=== PATIENT | female | born 1990 ===

== ENCOUNTER 2021-02-16 10:00 | Inpatient (IN) | payer OTHER ==
[~2021-02-16] VITALS: Ht 165.1 cm; Wt 97.3 kg
[2021-02-16 21:20] VITALS: BP 136/89; PULSE 87; TEMP 98.9
[2021-02-16 22:30] VITALS: BP 130/84; PULSE 75
[2021-02-16 22:47] LABS: BASO % 0.3 % (0.0-2.0); EOS # 0.1 (0.0-0.7); EOS % 1.1 % (0-4.0); GRAN # 7.5 (1.4-6.5); GRAN % 63.3 % (42.2-75.2); HEMATOCRIT 39.4 % (37.0-47.0); HEMOGLOBIN 12.5 g/dl (12.5-16.0); LYMPH % 25.6 % (20.0-51.0); MEAN CELL VOLUME 93 fl (80.0-100.0); MEAN CORPUSCULAR HEMOGLOBIN 29 pg (27.0-31.0); MEAN CORPUSCULAR HGB CONC 32 g/dl (33.0-37.0); MEAN PLATELET VOLUME 11.1 fl (7.4-10.4); MONO # 1.1 (0.1-0.6); MONO % 9.4 % (1.7-9.3); PLATELET COUNT 209 K/mm3 (130-400); RED BLOOD COUNT 4.26 M/mm3 (4.10-5.30); REDCELL DISTRIBUTION WIDTH-CV 14.8 % (11.5-14.5)
[2021-02-16 23:00] VITALS: BP 120/74; PULSE 81
[2021-02-16 23:15] VITALS: BP 125/77; PULSE 78
[2021-02-16 23:30] VITALS: BP 130/82; PULSE 85
[2021-02-17] VITALS (83 sets, daily range): BP systolic 103–163; BP diastolic 55–98; PULSE 71–134; TEMP 97.8–99
[2021-02-17] MEDS ORDERED: LEVOXYL0.05 MG PO (00:05)
[2021-02-17] MEDS ORDERED: PRENATAL 19 CH1 EACH PO (00:16)
--- NOTE | 2021-02-17 02:20 | NUR ---
SVE with 1cm external os/closed internal os, small amount pink mucous with exam.
--- NOTE | 2021-02-17 02:25 | NUR ---
Pitocin gtt started at 2mu, per protocol after explanantion to pt and spouse. Questions invited and answered.
--- NOTE | 2021-02-17 02:55 | NUR ---
Pt turned to WL, had shifted to back.
--- NOTE | 2021-02-17 06:25 | NUR ---
This RN receives bedside report from Ramon PRATT. Patient resting and has no needs at this time. 0710: Dr. Rincon updated ansd states he will be in to assess patient. Orders to continue to increase pitocin. 0835: Dr. Rincon at bedside and assessing patient patient and FHR. Plan of care discussed and questions answered. SVE per physician- 1-2/70/-2. Orders to increase pitocin to 30mu/hr and will recheck over lunch hour. 0940: Patient standing at bedside/sitting in rocking chair. 1122: Patient calls out and states she thinks her water broke. This RN to bedside and clear fluid running down leg onto floor. SROM at this time. Dr. Rincon updated. 1225: Dr. Rincon at bedside assessing patient and FHR. SVE per physician 1-2/80/-2 and clear fluid noted. Discusses with patient that she can have an epidural when she wants. 1345: Patient uncomfortable with contractions and requests epidural at this time. Adeline UMBRELLA [employer] notified.
--- NOTE | 2021-02-17 13:50 | NUR ---
Patient sitting up for epidural. Adeline WILSON at bedside. Difficulty tracing FHR due to maternal position. 1403: Test dose given and patient tolerates well. 1418: FHR decreasing intermittently and patient wedged left. FHR returns to baseline. Plan of care discussed and questions answered. Safety precautions discussed. 1455: Murillo cathter placed and patient tolerates well. SVE-2/80/-2. Patient left lateral and right leg resting in stirrup.
--- NOTE | 2021-02-17 16:50 | NUR ---
Dr. Rincon at bedside and assessing patient and FHR strip. Plan of care discussed and questions answered. SVE per physician 3-/-2. 1658: IUPC discussed and patient agrees with plan. IUPC placed at this time and patient tolerates well. This RN adjusting monitor and zeroing machine. Dr. Rinocn orders to turn off pitocin at this time for a pitocin break and turn back on at 1745 starting at 10mu/hr and increase by 2 every 15 minutes. Patient agrees. 1707: Pitocin off at this time. Difficulty tracing baseline of IUPC due to offscale reading. Monitors being adjusted.
--- NOTE | 2021-02-17 21:40 | NUR ---
Dr. Rincon at bedside. SVE unchanged since 1699. Dr. Rincon discussing plan of care and counsels on need for section. Pt and spouse agreeable at this time. Anesthesia updated. All questions answered.
--- NOTE | 2021-02-17 21:50 | NUR ---
Incision site clipped and scrubed with hibiclens. 2205 - FHR baseline 125. Monitors off and patient transferred to OR by bed with spouse.
[2021-02-18] VITALS (12 sets, daily range): BP systolic 113–157; BP diastolic 68–98; PULSE 82–110; TEMP 97.5–97.9
--- NOTE | 2021-02-18 06:00 | NUR ---
0620 Assumed care of patient. Rests in bed, alert. Denies any needs at this time.
--- NOTE | 2021-02-18 09:00 | NUR ---
Rests in bed, alert. Dr. Rincon here, visits with patient.
[2021-02-18] MEDS ORDERED: IBU600 MG PO (09:12)
[2021-02-18] MEDS ORDERED: PERCOCET 325 MG1 TA2 PO (09:12)
--- NOTE | 2021-02-18 09:52 | NUR ---
Initial visit; Parents thanked [employer] for offering congratulations and God's blessings for the of their son. [employer] thanked family for choosing our hospital.
--- NOTE | 2021-02-18 12:15 | NUR ---
Rests in bed, alert. 1220 Ibuprofen 600 mg given as ordered.
--- NOTE | 2021-02-18 13:45 | NUR ---
Percocet 5/325 mg one given per request and as ordered.
--- NOTE | 2021-02-18 18:00 | NUR ---
Rests in bed, alert. 1809 Percocet 5/325 mg one given, ibuprofen 600 mg given as ordered.
[2021-02-19 09:30] VITALS: BP 124/76; PULSE 97; TEMP 97.6
--- NOTE | 2021-02-19 16:40 | NUR ---
6930 DISCHARGE INSTRUCTIONS PROVIDED. SPOUSE AT BEDSIDE. THIS RN TO WALK OUT WITH PATIENTS AT THIS TIME.
== END 2021-02-19 16:25 | disposition home or self-care (01) | DRG 788 ==
LOC: OB 10:00 → LDR 21:01 → OB 02-17 08:42
PROVIDERS: ADMIT Obstetrics & Gynecology
PROC: 10D00Z1 Extraction of Products of Conception, Low, Open Approach (ICD-10-PCS; principal; 2021-02-16)
DX: O48.0 Post-term pregnancy (principal); O99.02 Anemia complicating childbirth; O99.284 Endocrine, nutritional and metabolic diseases complicating childbirth; E03.9 Hypothyroidism, unspecified; Z37.0 Single live birth; Z3A.41 41 weeks gestation of pregnancy; D64.9 Anemia, unspecified
CPT/HCPCS: J0690; J1885; J2210; J2370; J2400; J2405; J2590; J7120